=== PATIENT | female | born 1985 | race Caucasian/White ===

== ENCOUNTER 2017-05-22 23:56 | Emergency (ER) | payer OTHER ==
[~2017-05-22] VITALS: Ht 172.7 cm; Wt 111.4 kg
[~2017-05-22 23:56] MED LIST: MOTR200T44 PO; MUCI600T37 PO; TYLE325T5 PO
[2017-05-23] MEDS ORDERED: ASPI1TAB PO (00:08)
[2017-05-23] MEDS ORDERED: PRENTAB40 PO (00:08)
[2017-05-23 01:03] LABS: BASO % 0.2 % (0.0-1.0); EOS # 0.1 K/mm3 (0.0-0.50); EOS % 1.7 % (0.0-3.0); LARGE UNSTAINED CELL # 0.1 K/mm3 (0.0-0.4); LARGE UNSTAINED CELL % 1.1 % (0.0-4.0); LYMPH # 2.1 K/mm3 (1.5-6.5); LYMPH % 28.3 % (24.0-44.0); MEAN CORPUSCULAR HEMOGLOBIN 31.7 pg (27.0-33.0); MEAN CORPUSCULAR HGB CONC 35.6 g/dl (32.0-36.5); MEAN CORPUSCULAR VOLUME 89.1 fl (80.0-96.0); MONO # 0.3 K/mm3 (0.0-0.8); MONO % 4.1 % (0.0-5.0); NEUTROPHILS # 4.6 K/mm3 (1.8-7.7); NEUTROPHILS % 64.6 % (36.0-66.0); PLATELET COUNT, AUTOMATED 124 k/mm3 (150-450); RED CELL DISTRIBUTION WIDTH 12.8 % (11.5-14.5)
[2017-05-23 01:28] LABS: ANION GAP 8 MEQ/L (8-16); AST/SGOT 19 U/L (15-37); BLOOD UREA NITROGEN 10 MG/DL (7-18); CALCIUM LEVEL 8.5 MG/DL (8.5-10.1); CARBON DIOXIDE LEVEL 24 MEQ/L (21-32); CHLORIDE LEVEL 108 MEQ/L (98-107); CREATININE FOR GFR 0.65 MG/DL (0.55-1.02); GLOMERULAR FILTRATION RATE > 60.0 (>60); GLUCOSE, FASTING 81 MG/DL (70-105); POTASSIUM SERUM 3.8 MEQ/L (3.5-5.1); SODIUM LEVEL 140 MEQ/L (136-145)
[2017-05-23 01:29] LABS: ALBUMIN/GLOBULIN RATIO 0.88 (1.00-1.93); ALKALINE PHOSPHATASE 57 U/L (45-117); ALT/SGPT 24 U/L (12-78); BILIRUBIN,DIRECT < 0.1 MG/DL (0.0-0.2); BILIRUBIN,TOTAL 0.2 MG/DL (0.2-1.0); HCG, SERUM QUANTITATIVE 2310 MIU/ML; TOTAL PROTEIN 6.4 GM/DL (6.4-8.2)
--- NOTE | 2017-05-23 02:00 | REPUSA ---
CLINICAL HISTORY: Limited study to evaluate amniotic fluid. TECHNIQUE: Realtime sonographic images were obtained in multiple projections via TA/TV approach. COMMENTS: Single, live intrauterine gestation in transverse presentation. heart rate 157 beats per minute. Posterior placenta. Amniotic fluid appears normal. The noted fluid index is 9.4 cm which is normal for the patient's age. Hyperechoic floating area is seen in the lower uterine segment measuring 1.9x2.2 cm. Probably small h emorrhage versus vernix. IMPRESSION: Unremarkable amniotic fluid index. Thank you for your kind referral of this patient.
[2017-05-23 02:29] VITALS: BP 138/72
== END 2017-05-23 02:30 | disposition home or self-care (01) ==
LOC: M ED 23:56
DX: O20.0 Threatened abortion (principal); Z3A.18 18 weeks gestation of pregnancy; Z87.891 Personal history of nicotine dependence

== ENCOUNTER 2017-10-16 14:19 | Inpatient (IN) | payer OTHER ==
[2017-10-16] VITALS (22 sets, daily range): BP systolic 117–158; BP diastolic 55–87
[~2017-10-16] VITALS: Ht 172.7 cm; Wt 121.7 kg
[~2017-10-16 14:19] MED LIST changes: +ASPI1TAB PO; +PRENTAB40 PO
[2017-10-16] MEDS ORDERED: LR 1,000 ML IV SCH (15:22)
[2017-10-16] MEDS ORDERED: OXYTOCIN DRIP 30 UNITS in APPROPRIATE DILUENT 1 EA IV SCH ×2 (15:30→21:52)
[2017-10-16 16:30] LABS: MEAN CORPUSCULAR HEMOGLOBIN 30.2 pg (27.0-33.0); MEAN CORPUSCULAR HGB CONC 34.4 g/dl (32.0-36.5); MEAN CORPUSCULAR VOLUME 87.7 fl (80.0-96.0); PLATELET COUNT, AUTOMATED 134 10^3/uL (150-450); RED CELL DISTRIBUTION WIDTH 13.2 % (11.5-14.5); WHITE BLOOD COUNT 8.5 10^3/uL (4.0-10.0)
[2017-10-16] MEDS ORDERED: FENTANYL 2MCG/ML ROPIVACAINE 0.2% IN 0.9% NACL 200ML IVBAG As Ordered ONE (19:27)
[2017-10-16] MEDS ORDERED: NALOXONE INJ 0.4 MG/1 ML VIAL (J2310) IV PRN (20:45)
[2017-10-16] MEDS ORDERED: diphenhydrAMINE INJ 50MG/ML VIAL (J1200) IV PRN (20:45)
[2017-10-16] MEDS ORDERED: ONDANSETRON 4MG/2ML VIAL (J2405) IV PRN ×2 (20:45→22:00)
[2017-10-16] MEDS ORDERED: ePHEDrine SULFATE 25 MG/5 ML(5MG/ML) SYRINGE IV PRN (20:45)
[2017-10-16] MEDS ORDERED: FENTANYL/ROPIVACAINE/NACL BAG 200 ML EPIDURAL SCH (20:45)
[2017-10-16] MEDS ORDERED: EPIDURAL COMMENT XX SCH (20:45)
[2017-10-16] MEDS ORDERED: REFRIGERATOR IV KEYS XX PRN (20:45)
[2017-10-16] MEDS ORDERED: EPIDURAL/PCA KEYS XX PRN (20:45)
[2017-10-16] MEDS ORDERED: LACTATED RINGER'S 1000 ML IV PRN (20:45)
[2017-10-16] MEDS ORDERED: DIBUCAINE 1% OINTMENT 30GM TOP PRN (22:00)
[2017-10-16] MEDS ORDERED: PROMETHAZINE 25 MG TAB PO PRN (22:00)
[2017-10-16] MEDS ORDERED: MEASLES,MUMPS,RUBELLA VACCINE INJ (MMR-II) (90707) SC SCH (22:00)
[2017-10-16] MEDS ORDERED: RHOGAM 300 MCG (1500 IU) INJ (J2790) IM SCH (22:00)
[2017-10-16] MEDS ORDERED: METHYLERGONOVINE MALEATE 0.2 MG/ML VIAL (J2210) IM PRN (22:00)
[2017-10-17 00:10] VITALS: BP 115/60
[2017-10-17 06:27] VITALS: BP 119/57
[2017-10-17] MEDS: PRENATAL VITAMINS CHEWABLE TABLET PO SCH (07:44)
[2017-10-17] MEDS: DOCUSATE SODIUM 100 MG CAP PO SCH ×2 (07:44→21:08)
[2017-10-17] MEDS: IBUPROFEN 800 MG TAB PO PRN ×2 (07:57→18:50)
[2017-10-17] MEDS: ACETAMINOPHEN 500 MG TAB PO PRN (12:23)
[2017-10-17 18:00] VITALS: BP 125/61
[2017-10-18] MEDS: ACETAMINOPHEN 500 MG TAB PO PRN (00:54)
[2017-10-18 06:06] VITALS: BP 124/60
[2017-10-18] MEDS: PRENATAL VITAMINS CHEWABLE TABLET PO SCH (08:19)
[2017-10-18] MEDS: DOCUSATE SODIUM 100 MG CAP PO SCH (08:19)
[2017-10-18] MEDS: IBUPROFEN 800 MG TAB PO PRN (08:25)
[2017-10-18] MEDS ORDERED: ACET50TA PO (10:38)
[2017-10-18] MEDS ORDERED: COLA100C5 PO (10:38)
[2017-10-18] MEDS ORDERED: DIBU10OI TOP (10:38)
[2017-10-18] MEDS ORDERED: IBUP80TA PO (10:38)
--- NOTE | 2017-10-20 17:52 | DSES ---
DATE OF ADMISSION: 10/16/2017 DATE OF DISCHARGE: 10/18/2017 A 32-year-old 2, admitted with premature rupture of membranes at 39 weeks of gestation, augmented with Pitocin. Had a spontaneous vaginal delivery with epidural in place, live- male , 7 pounds 15 ounces, 3610 grams. scores of 8 and 9 at one and five, respectively. Hemoglobin 13.0, hematocrit 37.8, and platelets are 134. On discharge, we discussed phlebitis, cystitis, mastitis, metritis, cellulitis, diet, exercise pain management, perineal breast and wound care. Plan was to continue on her Lovenox until she sees us at 6 weeks but to discontinue her ASA. The vital signs on discharge: Blood pressure 124/60, respirations 16, pulse 62, temperature 98.3. The rest of the examination is unremarkable. She is normocephalic, atraumatic. Neck: Full range of motion. Pupils equal and reactive to light. Distal pulses symmetric. No evidence of deep vein thrombosis (DVT), pulmonary embolism (PE), or superficial phlebitis. Chest is clear bilaterally to bases. No wheezes or rhonchi. No costovertebral angle (CVA) tenderness. Uterus 2 below. Lochia is moderate. Perineum is healing. She has no rashes, lesions, or pruritus. No arthralgia, myalgia. No complaints of cough, wheeze, shortness of breath, or dyspnea on exertion. No chest pain. Not bleeding. Neurologic complete. No urgency, frequency. No nausea, vomiting, diarrhea, or constipation. No diabetic issues. Her main issue was her use of prophylactic Lovenox, although she has not ever had a clot or pulmonary embolus, and it was uncertain at the center if she should continue her Lovenox or not; however, since the increase of DVT and PE is higher , we suggest that she continue with her Lovenox until she sees us at her 6-week checkup. The patient was discharged with medications to followup. All questions were answered.
== END 2017-10-18 12:05 | disposition home or self-care (01) | DRG 775 ==
LOC: M LDO 14:19 → M LDI 15:20 → M OBS 10-17 00:02
PROVIDERS: ADMIT Obstetrics & Gynecology; ATTEND Obstetrics & Gynecology
PROC: 10E0XZZ Delivery of Products of Conception, External Approach (ICD-10-PCS; principal; 2017-10-16)
PROC: 0HQ9XZZ Repair Perineum Skin, External Approach (ICD-10-PCS; 2017-10-16)
DX: O70.0 First degree perineal laceration during delivery (principal); Z37.0 Single live birth; Z3A.39 39 weeks gestation of pregnancy; Z88.0 Allergy status to penicillin; Z91.040 Latex allergy status

== ENCOUNTER → 2019-12-06 | Outpatient (REF) | payer OTHER ==
[~2019-12-06] MED LIST changes: -ASPI1TAB PO; +ASPI81TA26 PO; +COLA100C5 PO; +DIBU10OI TOP; +IBUP80TA PO; +MAPA500T2 PO
[2019-12-06 18:53] LABS: APPEARANCE, URINE CLEAR (CLEAR); BACTERIA, URINE AUTO NEGATIVE (NEGATIVE); BILIRUBIN, URINE AUTO NEGATIVE (NEGATIVE); BLOOD, URINE BLOOD NEGATIVE (NEGATIVE); COLOR, URINE YELLOW (YELLOW); GLUCOSE, URINE (UA) AUTO NEGATIVE (NEGATIVE); KETONE, URINE AUTO NEGATIVE (NEGATIVE); LEUKOCYTE ESTERASE, URINE AUTO NEGATIVE (NEGATIVE); MUCUS, URINE SMALL (NEGATIVE); NITRITE, URINE AUTO NEGATIVE (NEGATIVE); PROTEIN, URINE AUTO NEGATIVE (NEGATIVE); RBC, URINE AUTO 0 /HPF (0-3); SPECIFIC GRAVITY URINE AUTO 1.016 (1.002-1.035); SQUAMOUS EPITHELIAL CELL UR AU 1 /HPF (0-6); UROBILINOGEN, URINE AUTO 0.2 mg/dL (0.0-2.0); WBC, URINE AUTO 0 /HPF (0-3)
== END ==
LOC: M LAB REF 17:06
PROVIDERS: ATTEND Nurse Practitioner Women's Health
DX: N39.0 Urinary tract infection, site not specified (principal)

== ENCOUNTER 2021-02-11 06:50 | Day surgery (SDC) | payer OTHER ==
[~2021-02-11] VITALS: Ht 167.6 cm; Wt 88.9 kg
[~2021-02-11 06:50] MED LIST changes: +CALC-218 PO; +CYAN500T14 PO; -DIBU10OI TOP; +DIBU28OI2 TOP; +DULO1CAP5 PO; +FOLI1TAB11 PO; +HYDR200T3 PO; +IMUR50TA10 PO; +METH25IN12 SC; +NIFE30TA50 PO; +PRED10TA2 PO; +PROTPAK PO; +VITMTA PO
[2021-02-11] MEDS ORDERED: NS 1,000 ML IV ONE (07:00)
[2021-02-11] MEDS ORDERED: propofoL 200 MG/20 ML VIAL As Ordered ONE (07:17)
[2021-02-11] MEDS ORDERED: LIDOCAINE 2% 100MG/5ML SDV (FOR ANES.) As Ordered ONE (07:17)
[2021-02-11] MEDS ORDERED: fentaNYL 100 MCG/2 ML INJECTION (J3010) As Ordered ONE (07:17)
--- NOTE | 2021-02-11 07:47 | ROOR ---
Patient Name: Cornelia Garza Procedure Date: 02/11/2021 7:25 AM Date of : 1985 Age: 35 Room: [facility] Gender: Female Note Status: Finalized Procedure: Upper Endoscopy + Biopsies Indications: Heartburn, Failure to respond to medical treatment, Exclusion of Mi's esophagus Providers: Grayson Hendrix MD Referring MD: MINDI OBREGON MD Requesting Provider: Medicines: Monitored Anesthesia Care Complications: No immediate complications. Procedure: Pre-Anesthesia Assessment: - The heart rate, respiratory rate, oxygen saturations, blood pressure, adequacy of pulmonary ventilation, and response to care were monitored throughout the procedure. The Endoscope was introduced through the mouth, and advanced to the second part of duodenum. The upper GI endoscopy was accomplished without difficulty. The patient tolerated the procedure well. Findings: The Z-line was variable and was found 35 cm from the incisors. Multiple biopsies were obtained with cold forceps for evaluation to rule out Mi's Esophagus randomly at the gastroesophageal junction. Mucosal changes were found in the mid esophagus. Biopsies were taken with a cold forceps for histology. A small hiatal hernia was present. No other significant abnormalities were identified in a careful examination of the stomach. Biopsies were taken with a cold forceps in the gastric antrum for Helicobacter pylori testing. The exam of the duodenum was otherwise normal. Impression: - Z-line variable, 35 cm from the incisors. - Esophageal mucosal changes suspicious for eosinophilic esophagitis. Biopsied. - Small hiatal hernia. - Multiple biopsies were obtained at the gastroesophageal junction. - Biopsies were taken with a cold forceps for Helicobacter pylori testing. - The examination was otherwise normal. Recommendation: - Patient has a contact number available for emergencies. The signs and symptoms of potential delayed complications were discussed with the patient. Return to normal activities tomorrow. Written discharge instructions were provided to the patient. - High fiber diet. - Discharge patient to home. - Follow an antireflux regimen. - Continue present medications. - Await pathology results. - Telephone GI clinic for pathology results in 1 week. - The findings and recommendations were discussed with the patient. Procedure Code(s): --- Professional --- 01592, Esophagogastroduodenoscopy, flexible, transoral; with biopsy, single or multiple Diagnosis Code(s): --- Professional --- K22.8, Other specified diseases of esophagus K44.9, Diaphragmatic hernia without obstruction or gangrene R12, Heartburn CPT copyright 2019 [employer]. All rights reserved. The codes documented in this report are preliminary and upon cable splicing technician review may be revised to meet current compliance requirements. Grayson Hendrix MD Grayson Hendrix MD 02/11/2021 7:46:41 AM Electronically signed by Grayson Hendrix MD Number of Addenda: 0 Note Initiated On: 02/11/2021 7:25 AM Estimated Blood Loss: Estimated blood loss: none.
[2021-02-11 08:35] VITALS: BP 118/76
== END 2021-02-11 08:30 | disposition home or self-care (01) ==
LOC: M OPP 06:50
PROVIDERS: ATTEND Internal Medicine Gastroenterology
DX: K22.8 Other specified diseases of esophagus (principal); K44.9 Diaphragmatic hernia without obstruction or gangrene; R12 Heartburn; Z79.899 Other long term (current) drug therapy; Z88.0 Allergy status to penicillin; Z91.040 Latex allergy status
CPT/HCPCS: 43239; 88305; J3010

== ENCOUNTER → 2023-12-05 | Outpatient (REF) | payer OTHER ==
[~2023-12-05] MED LIST changes: -HYDR200T3 PO; +HYDR200T46 PO; +NIFE-3 PO; -NIFE30TA50 PO
== END ==
LOC: M WUC 18:56
PROVIDERS: ATTEND Physician Assistant
DX: R35.0 Frequency of micturition (principal)